=== PATIENT | female | born 1965 | race Caucasian/White ===

== ENCOUNTER 2022-01-05 17:25 | Emergency (ER) | payer MEDICAID, OTHER ==
[~2022-01-05] VITALS: Ht 170.2 cm; Wt 90.7 kg
[~2022-01-05 17:25] MED LIST: ASPI-498 OR; ATOR20TA PO; CHOL20007 OR; FENO1TAB41 PO; HYDR-4188 OR; LEVO100T69; METF-370 PO
[2022-01-05] MEDS ORDERED: SODIUM CHLORIDE 0.9% 1,000 ML IV ONE (18:15)
[2022-01-05] MEDS ORDERED: ONDANSETRON HCL 4 MG/2 ML VIAL IV ONE ×2 (18:15→22:15)
[2022-01-05] MEDS ORDERED: HYDROmorphone HCL 2 MG/ML VL IV ONE (18:15)
[2022-01-05 18:38] LABS: Basophils # (auto) 0.1 10 ^3/uL (0-0.2); Basophils % (auto) 0.7 % (0.0-2.0); Eosinophils # (auto) 0.3 10 ^3/uL (0-0.8); Eosinophils % (auto) 2.8 % (0.0-7.0); Hematocrit 46.2 % (36.0-46.0); Hemoglobin 15.6 g/dL (12.2-16.2); Lymphocytes # (auto) 2.2 10 ^3/uL (0.4-5.4); Lymphocytes % (auto) 20.8 % (10.0-50.0); Mean Corpuscular Hemoglobin 31.2 pg (28.0-32.0); Mean Corpuscular Hgb Conc. 33.7 g/dL (32.0-36.0); Mean Corpuscular Volume 92.7 fL (80.0-100.0); Monocytes # (auto) 0.4 10 ^3/uL (0-1.3); Monocytes % (auto) 3.8 % (0.0-12.0); Neutrophils # (auto) 7.5 10 ^3/uL (1.6-8.6); Neutrophils % (auto) 71.9 % (37.0-80.0); Nucleated Red Blood Cells % 0.1 %; Red Blood Cells 4.99 10^6/uL (4.0-5.20); Red Cell Distribution Width 13.3 % (11.8-14.3); White Blood Cell 10.4 10^3/uL (4.4-10.8)
[2022-01-05 18:59] LABS: Albumin 3.7 g/dL (3.4-5.0); Calcium 9.5 mg/dL (8.5-10.1); Potassium 3.9 mmol/L (3.5-5.1)
[2022-01-05 19:02] LABS: BUN/Creatinine Ratio 21.1; Bilirubin, Total 0.4 mg/dL (0.2-1.0); Total Protein 7.2 g/dL (6.4-8.2)
[2022-01-05] MEDS ORDERED: HYDROcodone-ACET 10/325MG TAB PO ONE (20:00)
[2022-01-05] MEDS ORDERED: IOHEXOL 300 MG/ML 100ML BOTTLE IJ ONE (20:25)
[2022-01-05 23:00] VITALS: BP 139/92
== END 2022-01-05 23:16 | disposition home or self-care (01) ==
LOC: ER 17:26
DX: R11.0 Nausea (principal); T50.905A Adverse effect of unspecified drugs, medicaments and biological substances, initial encounter; F17.210 Nicotine dependence, cigarettes, uncomplicated; F12.10 Cannabis abuse, uncomplicated; E11.9 Type 2 diabetes mellitus without complications; E78.5 Hyperlipidemia, unspecified; Z90.710 Acquired absence of both cervix and uterus; Z90.89 Acquired absence of other organs; Z79.899 Other long term (current) drug therapy; Y92.89 Other specified places as the place of occurrence of the external cause
CPT/HCPCS: 36415; 74177; 80053; 83690; 85025; 85379; 96361; 96374; 96375; 99285; J2405; J7030; Q9967